=== PATIENT | female | born 1995 | race Hispanic/Latino ===

== ENCOUNTER 2019-05-02 21:23 | Emergency (ER) | payer OTHER ==
[~2019-05-02] VITALS: Ht 160 cm; Wt 88.5 kg
--- OUTSIDE RECORDS SUMMARY | 2019-05-02 21:25 | XMS REPORT ---
Author Author [facility] Address Unknown Phone Unavailable Care Team Providers Care Nurse General Duty Name Role Phone Unavailable Unavailable Payers Payer Name Policy Type Policy Number Effective Date Expiration Date Problems This patient has no known problems. Allergies, Adverse Reactions, Alerts Allergy Name Allergy Type Status Severity Reaction(s) Onset Date Inactive Date Treating Clinician Comments No Known Allergies DA Active U 2019-05-01 00:00:00 No Known Allergies DA Active U 2014-06-05 00:00:00 Medications This patient has no known medications. Results Test Description Test Time Test Comments Text Results Atomic Results Result Comments BASIC METABOLIC PANEL 2019-05-01 02:44:00 SODIUM (test code=NA) 140 mEq/L 134-147 POTASSIUM (test code=K) 3.5 mEq/L 3.4-5.0 CHLORIDE (test code=CL) 109 mEq/L 100-108 CARBON DIOXIDE (test code=CO2) 27 mEq/L 21-33 ANION GAP (test code=GAP) 8 0-20 GLUCOSE (test code=GLU) 94 mg/dL 70-110 BLOOD UREA NITROGEN (test code=BUN) 18 mg/dL 7-18 GLOMERULAR FILTRATION RATE (test code=GFR) 78.3 110-120 Units of measure=ml/min/1.73 m2 CREATININE (test code=CREAT) 0.9 mg/dL 0.6-1.3 CALCIUM (test code=CA) 8.2 mg/dL 8.0-10.5 HEPATIC FUNCTION [id number] 02:44:00* Test Item Value Reference Range Comments TOTAL PROTEIN (test code=PROT) 7.0 g/dL 6.4-8.2 ALBUMIN (test code=ALB) 3.40 g/dL 3.4-5.0 BILIRUBIN TOTAL (test code=BILT) 0.2 MG/DL <1.5 BILIRUBIN DIRECT (test code=BILD) < 0.10 MG/DL 0.0-0.30 BILIRUBIN INDIRECT (test code=BILIND) 0.10 MG/DL SGOT/AST (test code=AST) 14 IUnit/L 15-37 SGPT/ALT (test code=ALT) 22 IUnit/L 15-65 ALKALINE PHOSPHATASE TOTAL (test code=ALKP) 93 IUnit/L 20-125 [id number] 02:44:00* Test Item Value Reference Range Comments LIPASE (test code=LIP) 104 IUnit/L 73-393 HCG SERUM [id number] 02:44:00* Test Item Value Reference Range Comments HCG SERUM QUAL (test code=HCGQL) SERUM NEGATIVE NEGATIVE - CT ABD PELVIS [id number] 02:43:00 Name: MELI CAIN [facility] : 1995 Age/S: 23 / F [address] [place] [address] Unit #: [id number] Loc: [place] [address] Phys: Sekou Diggs NP Acct: [id number] Dis Date: Status: REG ER PHONE #: [phone] Exam Date: 05/01/2019224 FAX #: [phone] Reason: Generalized abd pain, worse RLQ EXAMS: CPT CODE: [id number] CT ABD PELVIS W/CONT 77096 PROCEDURE: CT abdomen and pelvis with contrast dated 05/01/2019 INDICATION: Generalized abdominal pain. Nausea. Diarrhea. COMPARISON: None. TECHNIQUE: A CT of the abdomen pelvis was performed using helical images from the thoracic outlet through the pubic symphysis with subsequent sagittal and coronal reconstruction. IV CONTRAST: 100 cc of Isovue-300 GI CONTRAST: 250 mL of dilute Omnipaque [address] imaging performed at this location utilizes radiation dose optimization techniques which include one or more of the followin) Automated exposure control; 2) Adjustment of mA and/or kV; 3) Use of iterative reconstructive technique. CT radiation dose DLP (mGy-cm): 540. FINDINGS: SOLID ORGANS: No acute CT abnormalities of the liver, spleen, pancreas, adrenal glands or kidneys are detected. There is no CT evidence of acute renal collecting system obstruction or calcified renal collecting system stone. BILIARY: The gallbladder is normally distended. No significant biliary ductal dilatation is identified. BOWEL: No abnormalities of the stomach or duodenum are identified. No small bowel dilatation is identified to suggest acute obstruction. The appendix is visualized and is not acutely inflamed. There is no evidence of diverticular disease or inflammatory colonic wall thickening. PERITONEUM: There is no evidence of free intraperitoneal air or significant free intraperitoneal fluid. RETROPERITONEUM: The abdominal aorta is no rmal in caliber. There is no evidence of retroperitoneal mass or adenopat hy. PELVIS: No abnormalities of the ovaries or adnexa are identifi ed. The bladder has an unremarkable appearance. LOWER CHEST : The lung bases appear clear of acute disease. PAGE 1 Signed Report (CONTINUED) Name: MELI CAIN [facility] : 1995 Age/S: 23 / F [address] [place] [address] Unit #: [id number] Loc: [place] [address] Phys: Sekou Diggs NP Acct: [id number] Dis Date: Status: REG ER PHONE #: [phone] Exam Date: 05/01 FAX #: [phone] Reason: Generalized abd pain, worse RLQ EXAMS: CPT CODE: [id number] CT ABD PELVIS W/CONT 74 177 <Continued> ADDITIONAL FINDINGS: None. IMPRESSION: 1. No acute CT abnormalities of the abdomen or pelvis are detected. SL: 131 at 0243 Reported and signed by: Arsh Rosenberg M.D. CC: Sekou Diggs NP Technologist:RT Kat(R) CTDI: DLP: Trnscb Date/Time: 05/01/2019 (024) Oleksandr Orig Print D/T: S: 05/01/2019 (0246) PAGE 2 Signed Report BASIC METABOLIC PANEL 2019-05-01 02:39:00* Test Item Value Reference Range Comments SODIUM (test code=NA) 140 mEq/L 134-147 POTASSIUM (test code=K) 3.5 mEq/L 3.4-5.0 CHLORIDE (test code=CL) 109 mEq/L 100-108 CARBON DIOXIDE (test code=CO2) 27 mEq/L 21-33 ANION GAP (test code=GAP) 8 0-20 GLUCOSE (test code=GLU) 94 mg/dL 70-110 BLOOD UREA NITROGEN (test code=BUN) 18 mg/dL 7-18 GLOMERULAR FILTRATION RATE (test code=GFR) 110-120 CREATININE (test code=CREAT) mg/dL 0.6-1.3 CALCIUM (test code=CA) 8.2 mg/dL 8.0-10.5 HEPATIC FUNCTION [id number] 02:39:00* Test Item Value Reference Range Comments TOTAL PROTEIN (test code=PROT) g/dL 6.4-8.2 ALBUMIN (test code=ALB) g/dL 3.4-5.0 BILIRUBIN TOTAL (test code=BILT) MG/DL <1.5 BILIRUBIN DIRECT (test code=BILD) MG/DL 0.0-0.30 SGOT/AST (test code=AST) IUnit/L 15-37 SGPT/ALT (test code=ALT) IUnit/L 15-65 ALKALINE PHOSPHATASE TOTAL (test code=ALKP) IUnit/L 20-125 [id number] 02:39:00* Test Item Value Reference Range Comments LIPASE (test code=LIP) 104 IUnit/L 73-393 HCG SERUM [id number] 02:39:00* Test Item Value Reference Range Comments HCG SERUM QUAL (test code=HCGQL) SERUM NEGATIVE NEGATIVE UA RFLX MICR CULT IF [id number] 02:19:00* Test Item Value Reference Range Comments UA COLOR (test code=COLU) YELLOW YEL/STRAW UA APPEARANCE (test code=APPU) CLEAR CLEAR UA GLUCOSE DIPSTICK (test code=DGLUU) NEGATIVE NEGATIVE UA BILIRUBIN DIPSTICK (test code=BILU) NEGATIVE NEGATIVE UA KETONE DIPSTICK (test code=KETU) NEGATIVE NEGATIVE UA SPECIFIC GRAVITY (test code=SGU) 1.021 1.005-1.030 UA BLOOD DIPSTICK (test code=LOPEZ) 2+ NEGATIVE UA PH DIPSTICK (test code=CECILIA) 6.0 5.0-7.0 UA PROTEIN DIPSTICK (test code=PROU) NEGATIVE NEGATIVE UA UROBILINIOGEN DIPSTICK (test code=URO) 0.2 mg/dL 0.2-1.0 UA NITRITE DIPSTICK (test code=EVERTON) NEGATIVE NEGATIVE UA LEUKOCYTE ESTERASE DIPSTICK (test code=LEUU) TRACE NEGATIVE UA WBC (test code=WBCU) 0-3 WBC/HPF 0-3 UA RBC (test code=RBCU) 4-10 RBC/HPF 0-3 UA WBC NO REFLEX (test code=WBCUCL) 0-3 WBC/HPF 0-3 UA BACTERIA (test code=BACU) NONE SEEN /HPF NONE SEEN UA SQUAMOUS CELLS (test code=SQU) 0-5 /HPF NONE SEEN UA MUCUS (test code=MUCU) 1+ /LPF NONE SEEN Indication for culture: Suprapubic PainSpecimen Description: CLEAN CATCH BASIC METABOLIC [id number] 02:17:00* Test Item Value Reference Range Comments SODIUM (test code=NA) mEq/L 134-147 POTASSIUM (test code=K) mEq/L 3.4-5.0 CHLORIDE (test code=CL) mEq/L 100-108 CARBON DIOXIDE (test code=CO2) mEq/L 21-33 ANION GAP (test code=GAP) 0-20 GLUCOSE (test code=GLU) mg/dL 70-110 BLOOD UREA NITROGEN (test code=BUN) mg/dL 7-18 GLOMERULAR FILTRATION RATE (test code=GFR) 110-120 CREATININE (test code=CREAT) mg/dL 0.6-1.3 CALCIUM (test code=CA) mg/dL 8.0-10.5 HEPATIC FUNCTION [id number] 02:17:00* Test Item Value Reference Range Comments TOTAL PROTEIN (test code=PROT) g/dL 6.4-8.2 ALBUMIN (test code=ALB) g/dL 3.4-5.0 BILIRUBIN TOTAL (test code=BILT) MG/DL <1.5 BILIRUBIN DIRECT (test code=BILD) MG/DL 0.0-0.30 SGOT/AST (test code=AST) IUnit/L 15-37 SGPT/ALT (test code=ALT) IUnit/L 15-65 ALKALINE PHOSPHATASE TOTAL (test code=ALKP) IUnit/L 20-125 [id number] 02:17:00* Test Item Value Reference Range Comments LIPASE (test code=LIP) IUnit/L 73-393 HCG SERUM [id number] 02:17:00* Test Item Value Reference Range Comments HCG SERUM QUAL (test code=HCGQL) SERUM NEGATIVE NEGATIVE CBC W/AUTO [id number] 01:58:00* Test Item Value Reference Range Comments WHITE BLOOD CELL (test code=WBC) 8.45 x10 3/uL 4.5-11.0 RED BLOOD CELL (test code=RBC) 3.98 x10 6/uL 3.54-5.02 HEMOGLOBIN (test code=HGB) 12.1 g/dL 11.0-15.0 HEMATOCRIT (test code=HCT) 36.8 % 33.0-45.0 MEAN CELL VOLUME (test code=MCV) 92.5 fL 81.0-99.0 MEAN CELL HGB (test code=MCH) 30.4 pg 27.0-33.0 MEAN CELL HGB CONCETRATION (test code=MCHC) 32.9 g/dL 33.0-37.0 RED CELL DISTRIBUTION WIDTH CV (test code=RDW) 12.4 % 11.5-14.5 RED CELL DISTRIBUTION WIDTH SD (test code=RDW-SD) 42.8 fL 37.0-54.0 PLATELET COUNT (test code=PLT) 296 x10 3/uL 150-400 MEAN PLATELET VOLUME (test code=MPV) 9.2 fL 7.0-9.0 NEUTROPHIL % (test code=NT%) 51.4 % 56.0-77.0 IMMATURE GRANULOCYTE % (test code=IG%) 0.4 % 0.0-2.0 LYMPHOCYTE % (test code=LY%) 35.4 % 14.0-32.0 MONOCYTE % (test code=MO%) 8.8 % 4.8-9.0 EOSINOPHIL % (test code=EO%) 3.2 % 0.3-3.7 BASOPHIL % (test code=BA%) 0.8 % 0.0-2.0 NUCLEATED RBC % (test code=NRBC%) 0.0 % 0-0 NEUTROPHIL # (test code=NT#) 4.35 x10 3/uL 2.0-7.6 IMMATURE GRANULOCYTE # (test code=IG#) 0.03 x10 3/uL 0.00-0.03 LYMPHOCYTE # (test code=LY#) 2.99 x10 3/uL 1.0-3.8 MONOCYTE # (test code=MO#) 0.74 x10 3/uL 0.1-0.8 EOSINOPHIL # (test code=EO#) 0.27 x10 3/uL 0.0-0.2 BASOPHIL # (test code=BA#) 0.07 x10 3/uL 0.0-0.2 NUCLEATED RBC # (test code=NRBC#) 0.00 x10 3/uL 0.0-0.1 MANUAL DIFF REQUIRED (test code=MDIFF) NO
[2019-05-02 22:47] LABS: BILIRUBIN,URINE NEGATIVE (NEGATIVE); CLARITY,URINE CLEAR (CLEAR); COLOR,URINE YELLOW (YELLOW); KETONES,URINE NEGATIVE (NEGATIVE); LEUKOCYTE ESTERASE ,URINE NEGATIVE (NEGATIVE); NITRITE,URINE NEGATIVE (NEGATIVE); PROTEIN,URINE DIPSTICK NEGATIVE (NEGATIVE); URINE UROBILINOGEN 0.2 mg/dL (0.2 - 1)
[2019-05-02 22:54] LABS: BACTERIA,URINE FEW /HPF; EPITHELIAL CELLS,URINE MODERATE /LPF; MUCUS,URINE FEW (RARE); WBC,URINE (MAN) 0-5 /HPF (0-5)
[2019-05-02 22:55] LABS: PREGNANCY TEST, URINE NEGATIVE (NEGATIVE)
--- NOTE | 2019-05-02 23:40 | Diagnostic Imaging Report ---
EXAM: Abdomen Radiograph 1 View INDICATION: Abdominal pain COMPARISON: None FINDINGS: No abnormalities in the lower chest. No lines or tubes. Greater than average volume of stool in the colon. No dilated loops of small bowel. No abnormal abdominal calcifications.. No abnormal soft tissue masses. No pneumoperitoneum. No acute osseous abnormality. Mild degenerative changes at the pubic symphysis. IMPRESSION: Moderate colonic stool burden, consistent with constipation. Mild degenerative changes at the pubic symphysis. Signed by: Indio Hdez DO on 05/02/2019 11:36 PM
== END 2019-05-02 23:48 | disposition home or self-care (01) ==
LOC: ER 21:23
DX: R10.84 Generalized abdominal pain (principal); K59.00 Constipation, unspecified
CPT/HCPCS: 74019; 81001; 81025; 99283

== ENCOUNTER → 2021-02-27 | Day surgery (SDC) | payer BC, OTHER ==
[~2021-02-27] MED LIST: AMOXICILLIN250 MG PO; B1 VITAMIN; BUPIVACAINE HCL 0.5% INJ 30 ML VIAL INJ ONE; DEXAMETHASONE SOD PHOS INJ 4 MG/ML VIAL ONE; FAMOTIDINE10 MG; FENTANYL CITRATE/PF 100MCG/2 ML INJ ONE; FOLIC ACID0.4 MG PO; GLYCOPYRROLATE INJ 0.2 MG/ML VIAL ONE; HYDROMORPHONE 1MG/1ML INJ ONE; LIDOCAINE HCL 2% LOCAL INJ 5 ML SDV VIAL INJ ONE; NEOSTIGMINE 1 MG/ML 10ML VIAL ONE; OMEPRAZOLE40 MG PO; ONDANSETRON HCL INJ 2MG/ML 2ML 2 MG/ML VIAL ONE; POVIDONE IODINE 0.05% 0.05 % ML PO ONE; PRISTIQ ER50 MG PO; PROPOFOL IV EMULSION 10 MG/ML 20 ML VIAL ONE; PROPRANOLOL HCL10 MG PO; ROCURONIUM BROMIDE 10 MG/ML 5ML VIAL IV ONE; SEVOFLURANE INHAL SOLN 250 ML PEN BTL ONE; TRAZODONE HCL50 MG PO; [UNRECOGNIZED DRUG - OTHER]
[2021-02-27 09:10] VITALS: BP 118/75
== END | disposition home or self-care (01) ==
LOC: OR 06:10
PROVIDERS: ATTEND Otolaryngology
DX: J35.03 Chronic tonsillitis and adenoiditis (principal); G47.33 Obstructive sleep apnea (adult) (pediatric); Z01.812 Encounter for preprocedural laboratory examination; Z20.822 Contact with and (suspected) exposure to COVID-19; K21.9 Gastro-esophageal reflux disease without esophagitis; J45.909 Unspecified asthma, uncomplicated
CPT/HCPCS: 42821; 81025; 88304; J1100; J1170; J2001; J2405; J2704; J2710; J3010; U0002